=== PATIENT | female | born 1980 | race Caucasian/White ===

== ENCOUNTER 2017-08-02 18:28 | Emergency (ER) | payer MEDICAID ==
[2017-08-02 18:33] VITALS: BP 106/75; PULSE 98; RESP 18; TEMP 98.1; O2SAT 97
--- NOTE | 2017-08-02 18:35 | EDPHY ---
H & P Stated Complaint: Seen at [facility] this am;left AMA;wants admission for detox;pt intoxicated now Time Seen by Provider: 08/02/17 18:34 HPI/ROS: HPI: This is a 37-year-old female who presents with Chief Complaint: Seen at [facility] this am;left AMA;wants admission for detox;pt intoxicated now Location:body Quality: Alcohol intoxication Duration: Years Signs and Symptoms: No delirium, no hallucinations, no suicidal ideation, no homicidal ideation, no abdominal pain, no nausea, no vomiting, no anxiety, no auditory/tactile/visual disturbances Timing: Chronic Severity: Moderate Context: Patient has been drinking alcohol daily since the age of 16 presents after being seen at [facility] this morning with request for detox from alcohol. Today she has had accidentally stick drinks of alcohol last ingestion 30 min prior to arrival. She admits to being intoxicated at this time. She denies any suicidal ideation, homicidal ideation. Patient reports that she had a alcohol withdrawal seizure Friday evening. This was the 1st time that this occurred. She has been to [place] detox facility approximately 5-6 years ago. Denies any inpatient psychiatric hospitalization. Patient reports that she had an IUD and does not get her period regularly. Modifying Factors: None Comment: ROS: see HPI Constitutional: No fever, no chills, no weight loss Eyes: No blurred vision Respiratory: No shortness of breath, no cough Cardiovascular: No chest pain Gastrointestinal: No nausea, no vomiting, no diarrhea Genitourinary: No dysuria Extremities: No myalgias Neurologic: No weakness, no numbness Skin: No rashes Hematologic: No bruising, no bleeding MEDICAL/SURGICAL/SOCIAL HISTORY: Medical history: Alcohol dependence Surgical history: Denies Social history: Strong family support. CONSTITUTIONAL: Clearly intoxicated, labile, tidy, uncooperative adult white female, smells heavily of alcohol, awake and alert, no obvious distress HEENT: Atraumatic and normocephalic, PERRL, EOMI. Tympanic membranes clear. Oropharynx clear, no exudate and moist pink mucosa. Airway patent. No lymphadenopathy. No meningismus. Cardiovascular: Normal S1/S2, regular rate, regular rhythm, without murmur rub or gallop. PULMONARY/CHEST: Symmetrical and nontender. Clear to auscultation bilaterally. Good air movement. No accessory muscle usage. ABDOMEN: Soft, nondistended, nontender, no rebound, no guarding, no peritoneal signs, no masses or organomegaly. No CVAT. EXTREMITIES: 2/2 pulses, strength 5/5, no deformities, no clubbing, no cyanosis or edema. NEUROLOGICAL: no focal neuro deficits. GCS 15. SKIN: Warm and dry, no erythema. no rash. Good capillary refill. Source: Patient, Family Exam Limitations: Intoxication - Personal History LMP (Females 10-55): Unknown Current Tetanus Diphtheria and Acellular Pertussis (TDAP): Unsure - Medical/Surgical History Other PMH: alcohol abuse - Social History Smoking Status: Never smoked Constitutional: Initial Vital Signs Temperature (C) 36.7 C 08/02/17 18:30 Heart Rate 98 08/02/17 18:30 Respiratory Rate 18 08/02/17 18:30 Blood Pressure 106/75 08/02/17 18:30 O2 Sat (%) 97 08/02/17 18:30 O2 Delivery Mode Room Air Allergies/Adverse Reactions: No Known Allergies Allergy (Verified 08/02/17 18:30) Home Medications: Medication Instructions Recorded NK [No Known Home Meds] 08/02/17 Medical Decision Making ED Course/Re-evaluation: Discussed options with patient including discharged to the [facility]. Patient refused this and friend/family at bedside are willing to agree with her not to go to this facility. She was signed out AMA and family/friends signed paperwork for her. Friend contracts for safety. No signs of SI, HI, delirium, psychosis. Patient does not meet M1 criteria or detainer. Patient is ambulatory without deficits and no ataxia at discharge. This patient was seen under the supervision of my secondary supervising physician. I evaluated care for this patient independently. Discussed this patient with Dr. Dickson who did not see the patient. Patient's presentation, labs/imaging, treatment and plan of care were discussed with secondary supervising physician. Differential Diagnosis: Differential diagnosis includes not limited to alcohol intoxication, Alcohol dependence syndrome, alcohol withdrawal seizures, electrolyte imbalance, elevated LFTs. Departure - Departure Disposition: Home, Routine, Self-Care Clinical Impression: Alcohol intoxication Qualifiers: Complication of substance-induced condition: uncomplicated Qualified Code(s): F10.920 - Alcohol use, unspecified with intoxication, uncomplicated Alcohol dependence syndrome Qualifiers: Substance use status: with intoxication Complication of substance-induced condition: uncomplicated Qualified Code(s): F10.220 - Alcohol dependence with intoxication, uncomplicated Condition: Fair Instructions: Alcohol Dependence (ED), Alcohol Use Disorder (ED) Additional Instructions: Please finding alternative outpatient versus inpatient alcohol rehabilitation facility to check yourself into as soon as possible. Do not drive while under the influence of alcohol. Please stop drinking alcohol excessively. Referrals: [facility] [Primary Care Provider] - As per Instructions [facility] 24 Hours [Outside] - As per Instructions
== END 2017-08-02 18:54 | disposition home or self-care (01) ==
DX: F10.220 Alcohol dependence with intoxication, uncomplicated (principal)